=== PATIENT | male | born 1980 | race Caucasian/White ===

== ENCOUNTER 2025-04-12 23:35 | Emergency (ER) | payer SELFPAY ==
[~2025-04-12] VITALS: Ht 175.3 cm; Wt 60.0 kg
[2025-04-12 23:40] VITALS: BP 142/73; PULSE 110; RESP 16; TEMP 98.4; O2SAT 98
== END 2025-04-13 03:38 | disposition left against medical advice (07) ==
LOC: ER 23:37
DX: Z00.8 Encounter for other general examination (principal); Z53.21 Procedure and treatment not carried out due to patient leaving prior to being seen by health care provider